=== PATIENT | male | born 1945 | race Caucasian/White ===

== ENCOUNTER 2018-09-25 19:13 | Day surgery (SDC) | payer OTHER ==
[2018-09-25] MEDS ORDERED: LIDOCAINE 2% VISCOUS 15 ML UDCUP PO ONE (19:44)
[2018-09-25] MEDS ORDERED: HYOSCYAMINE SULFATE 0.125 MG TAB PO ONE (19:44)
[2018-09-25] MEDS ORDERED: MAG HYDROX/AL HYDROX/SIMETH 30 ML UDCUP PO ONE (19:44)
--- NOTE | 2018-09-25 19:47 | EDPHY ---
H & P Stated Complaint: EATING DINNER, HICCUPS/INDIGESTION/BURNING, FORCED VOMIT, STILL BURNING Time Seen by Provider: 09/25/18 19:29 HPI/ROS: CHIEF COMPLAINT: Dyspepsia HISTORY OF PRESENT ILLNESS: The patient presents to the ED with severe dyspepsia that began after eating dinner. The patient reports that he is quite healthy. He exercises every day without any chest pain or shortness of breath. His symptoms began after having a primary rib dinner with baked potato. The patient denies any abdominal pain. The patient denies any fever, denies any productive cough. The patient reportedly regurgitated several times. Now he does complains of a burning esophageal pain. He reports he is able to swallow without discomfort currently REVIEW OF SYSTEMS: A comprehensive 10 point review of systems is otherwise negative aside from elements mentioned in the history of present illness. Source: Patient Exam Limitations: No limitations - Personal History Current Tetanus/Diphtheria Vaccine: Yes - Medical/Surgical History Hx Asthma: No Hx Chronic Respiratory Disease: No Hx Diabetes: No Hx Cardiac Disease: No Hx Renal Disease: No Hx Cirrhosis: No Hx Alcoholism: No Hx HIV/AIDS: No Hx Splenectomy or Spleen Trauma: No Other PMH: MENIERS, GERD, RIGHT HIP, LEFT KNEE, SPINAL TUMOR-BENIGN, - Social History Smoking Status: Former smoker - Physical Exam Exam: General Appearance: Alert, no distress Eyes: Pupils equal and round no pallor or injection ENT, Mouth: Mucous membranes moist Respiratory: There are no retractions, lungs are clear to auscultation Cardiovascular: Regular rate and rhythm Gastrointestinal: Abdomen is soft and nontender, no masses, bowel sounds normal Neurological: 5/5 strength all 4 extremities Skin: Warm and dry, no rashes Musculoskeletal: Neck is supple nontender Extremities: symmetrical, full range of motion Psychiatric: Patient is oriented X 3, there is no agitation Constitutional: Initial Vital Signs Temperature (C) 37.0 C 09/25/18 19:20 Heart Rate 68 09/25/18 19:20 Respiratory Rate 18 09/25/18 19:20 Blood Pressure 159/81 H 09/25/18 19:20 O2 Sat (%) 98 09/25/18 19:20 O2 Delivery Mode Room Air Allergies/Adverse Reactions: No Known Allergies Allergy (Unverified 09/25/18 19:19) Home Medications: Medication Instructions Recorded Lipitor 09/25/18 Triamterene 09/25/18 Medical Decision Making - Diagnostics EKG Interpretation: EKG: Complete interpretation has been separately recorded in the [employer] archive. Summary impression: Sinus rhythm, rate 67, no ischemic changes noted ED Course/Re-evaluation: The patient presents to the ED with complaints of severe dyspepsia the began after eating earlier today. The patient has no abdominal pain or tenderness. Initial EKG demonstrates no evidence of ischemia. The patient was given a GI cocktail. The patient drink this slowly with some improvement of his symptoms. The patient was given a p.o. Challenge also with carbonated soda and immediately developed recurrent regurgitation. Patient likely has an esophageal meat impaction. The patient received 1 mg of IV glucagon. Consultation was made with Gastroenterology at 8:20 p.m.. I spoke with Dr. Tate at 8:40 p.m. who is making arrangements for endoscopy. Differential Diagnosis: Differential diagnosis considered includes esophageal meat impaction, dyspepsia , gastroesophageal reflux disease, gastritis - Data Points Laboratory Results: Laboratory Results 09/25/18 19:40 09/25/18 19:40 09/25/18 09/25/18 19:40 19:40 WBC 6.85 10^3/uL 10^3/uL (3.80-9.50) RBC 5.13 10^6/uL 10^6/uL (4.40-6.38) Hgb 16.1 g/dL g/dL (13.7-17.5) Hct 46.4 % % (40.0-51.0) MCV 90.4 fL fL (81.5-99.8) MCH 31.4 pg pg (27.9-34.1) MCHC 34.7 g/dL g/dL (32.4-36.7) RDW 12.9 % % (11.5-15.2) Plt Count 234 10^3/uL 10^3/uL (150-400) MPV 9.0 fL fL (8.7-11.7) Neut % (Auto) 58.5 % % (39.3-74.2) Lymph % (Auto) 30.4 % % (15.0-45.0) [place] % (Auto) 8.3 % % (4.5-13.0) Eos % (Auto) 2.2 % % (0.6-7.6) Baso % (Auto) 0.6 % % (0.3-1.7) Nucleat RBC Rel Count 0.0 % % (0.0-0.2) Absolute Neuts (auto) 4.01 10^3/uL 10^3/uL (1.70-6.50) Absolute Lymphs (auto) 2.08 10^3/uL 10^3/uL (1.00-3.00) Absolute Monos (auto) 0.57 10^3/uL 10^3/uL (0.30-0.80) Absolute Eos (auto) 0.15 10^3/uL 10^3/uL (0.03-0.40) Absolute Basos (auto) 0.04 10^3/uL 10^3/uL (0.02-0.10) Absolute Nucleated RBC 0.00 10^3/uL 10^3/uL (0-0.01) Immature Gran % 0.0 % % (0.0-1.1) Immature Gran # 0.00 10^3/uL 10^3/uL (0.00-0.10) Sodium 138 mEq/L mEq/L (135-145) Potassium 4.0 mEq/L mEq/L (3.3-5.0) Chloride 108 mEq/L mEq/L (97-110) Carbon Dioxide 18 mEq/l L mEq/l (22-31) Anion Gap 12 mEq/L mEq/L (6-14) BUN 18 mg/dL mg/dL (7-23) Creatinine 0.7 mg/dL mg/dL (0.7-1.3) Estimated GFR > 60 Glucose 80 mg/dL mg/dL (70-100) Calcium 8.9 mg/dL mg/dL (8.5-10.4) Total Bilirubin 0.6 mg/dL mg/dL (0.1-1.4) Conjugated Bilirubin 0.3 mg/dL mg/dL (0.0-0.5) Unconjugated Bilirubin 0.3 mg/dL mg/dL (0.0-1.1) AST 35 IU/L IU/L (17-59) ALT 32 IU/L IU/L (21-72) Alkaline Phosphatase 55 IU/L IU/L (38-126) Total Protein 7.0 g/dL g/dL (6.3-8.2) Albumin 4.2 g/dL g/dL (3.5-5.0) Lipase 118 IU/L IU/L (23-300) Medications Given: Discontinued Medications Al Hydroxide/Mg Hydroxide (Maalox Susp) 30 ml PO ONCE ONE Stop: 09/25/18 19:45 Last Admin: 09/25/18 19:49 Dose: 30 ml Hyoscyamine Sulfate (Levsin, Hyomax-Sl) 0.25 mg PO ONCE ONE Stop: 09/25/18 19:45 Last Admin: 09/25/18 19:49 Dose: 0.25 mg Lidocaine (Lidocaine 2% Viscous) 15 ml PO ONCE ONE Stop: 09/25/18 19:45 Last Admin: 09/25/18 19:49 Dose: 15 ml Departure - Departure Disposition: To OP Cath/Surgery Clinical Impression: Esophageal foreign body Condition: Good Referrals: ANASTASIA MARC [Other] - As per Instructions
--- NOTE | 2018-09-25 19:50 | CPEKG ---
Test Reason : OPEN Blood Pressure : / mmHG Vent. Rate : 067 BPM Atrial Rate : 068 BPM P-R Int : 185 ms QRS Dur : 089 ms QT Int : 387 ms P-R-T Axes : 001 022 040 degrees QTc Int : 409 ms Sinus rhythm Confirmed by Bola Juarez ([id number]) on 09/25/2018 7:49:17 PM Referred By: Confirmed By:Bola Juarez
[2018-09-25 20:07] LABS: PLATELET COUNT 234 10^3/uL (150-400)
[2018-09-25] MEDS ORDERED: GLUCAGON HCL 1 MG VIAL IVP ONE (20:21)
[2018-09-25] MEDS ORDERED: PROPOFOL 200 MG/20 ML VIAL ONE (21:19)
[2018-09-25] MEDS ORDERED: fentaNYL 100 MCG/2 ML INJ ONE (21:19)
[2018-09-25] MEDS ORDERED: LIDOCAINE 2% 100 MG/5 ML SYR ONE (21:20)
[2018-09-25] MEDS ORDERED: ROCURONIUM 50 MG/5 ML VIAL ONE (21:20)
[2018-09-25] MEDS ORDERED: SUGAMMADEX SODIUM 200 MG/2 ML VIAL IVP ONE (21:20)
--- NOTE | 2018-09-25 21:41 | PDANEPAE ---
ANE History of Present Illness food impaction, here for EGD ANE Past Medical History - Pulmonary History Hx Oxygen in Use at Home: No - Endocrine History Hx Diabetes: No ANE Review of Systems Review of Systems: - Exercise capacity Exercise capacity: >=4 METS ANE Patient History - Allergies Allergies/Adverse Reactions: No Known Allergies Allergy (Unverified 09/25/18 19:19) - Home Medications Home Medications: Lipitor 09/25/18 [Last Taken Unknown] Triamterene 09/25/18 [Last Taken Unknown] - NPO status NPO Since - Liquids (Date): 09/25/18 NPO Since - Liquids (Time): 18:15 NPO Since - Solids (Date): 09/25/18 NPO Since - Solids (Time): 18:15 - Anes Hx Anes Hx: no prior problems - Smoking Hx Smoking Status: Former smoker - Alcohol Use Alcohol Use: Rarely - Family Anes Hx Family Anes Hx: none ANE Labs/Vital Signs - Labs Result Diagrams: 09/25/18 19:40 09/25/18 19:40 - Vital Signs Blood Pressure: 103/77 Heart Rate: 66 Respiratory Rate: 20 O2 Sat (%): 95 Height: 170.18 cm Weight: 71.214 kg ANE Physical Exam - Airway Neck exam: FROM Mallampati Score: Class 2 Mouth exam: normal dental/mouth exam - Pulmonary Pulmonary: no respiratory distress, clear to auscultation - Cardiovascular Cardiovascular: regular rate and rhythym, no murmur, rub, or gallop - ASA Status ASA Status: II ANE Anesthesia Plan Anesthesia Plan: general endotracheal anesthesia Urgent/Emergent Case: Jeannine dowling completed preop but documented later for safe timely pt care
--- NOTE | 2018-09-25 21:52 | GIREPORT ---
[facility] Surgical Services - Endoscopy Department Patient Name: Stephon Britton Procedure Date: 09/25/2018 9:24 PM Patient Type: Emergency Department Attending MD/ ER Physician: Maria T Tate MD Procedure: Upper GI endoscopy Indications: Dysphagia, Foreign body in the esophagus Providers: Maria T Tate MD Medicines: General Anesthesia Complications: No immediate complications. Description of Procedure: After obtaining informed consent, the endoscope was passed under direct vision. Throughout the procedure, the patient's blood pressure, pulse, and oxygen saturations were monitored continuously. The Endoscope was intro duced through the mouth, and advanced to the duodenal bulb. The upper GI endo scopy was accomplished without difficulty. The patient tolerated the procedur e well. Findings: Food was found in the lower third of the esophagus. Removal of food was accomplished. LA Grade C (one or more mucosal breaks continuous between tops of 2 or more mucosal folds, less than 75% circumference) esophagitis with no bleedin g was found in the lower third of the esophagus. Few cratered esophageal ulcers with no bleeding and no stigmata of rece nt bleeding were found in the lower third of the esophagus. The largest le jeny was 2 mm in largest dimension. Biopsies were taken with a cold forceps for histology. Estimated blood loss was minimal. Food (residue) was found in the stomach. The examined duodenum was normal. Estimated Blood Loss: Estimated blood loss was minimal. Post Op Diagnosis: - Food in the lower third of the esophagus. Removal was successful with insufflation food passed into stomach. - LA Grade C esophagitis. - Non-bleeding esophageal ulcers. Biopsied. Atypical for acute inflamma tion from food impaction consider viral. - Food (residue) in the stomach. - Normal examined duodenum. Recommendation: - Await pathology results. - Patient has a contact number available for emergencies. The signs and symptoms of potential delayed complications were discussed with the pat ient. Return to normal activities tomorrow. Written discharge instructions we re provided to the patient. - Clear liquid diet for 12 hours. Advance diet slowly. - Use Prilosec OTC 20 mg PO daily. - Use Mylanta PO as directed PRN. - Repeat upper endoscopy in 3 months to check healing. - Discharge patient to home. - Thank you for allowing me to participate in the care of your patient. Attending Participation: I personally performed the entire procedure. Maria T Tate MD Maria T Tate MD 09/25/2018 9:51:27 PM This report has been signed electronicallyMaria T Tate MD Number of Addenda: 0 Note Initiated On: 09/25/2018 9:24 PM [email or web address]
[2018-09-25] MEDS ORDERED: NALOXONE HCL 0.4 MG/ML INJ IVP PRN (21:57)
--- NOTE | 2018-09-25 21:59 | POSTANESTH ---
Post Anesthetic Evaluation Cardiovascular Status: Normal, Stable, Similar to Pre-Op Cond Respiratory Status: Normal, Stable, Similar to Pre-op Cond. Level of Consciousness/Mental Status: Can Participate in Eval, Alert and Oriented Pain Control: Adequate, Prn Tx Ordered Nausea/Vomiting Control: Adequate, Prn Tx Ordered Complications Possibly Related to Anesthesia: None Noted
[2018-09-25 22:51] VITALS: BP 119/74
--- NOTE | 2018-09-25 22:57 | GCON ---
DATE OF CONSULTATION: 09/25/2018 CHIEF COMPLAINT: Dysphagia. HISTORY OF PRESENT ILLNESS: Patient is a pleasant 73-year-old with remote history of heartburn who h ad an acute sensation of abdominal pain after eating prime rib this evening. He noted a feeling of b urning in his chest that resulted in hiccups and he was unable to swallow saliva. He presented to [facility] emergency room, he was given glucagon, initially felt better, but was still unable to swallow any l iquids. He states he has never had a history of foreign body obstruction. No history of dysphagia, although occasionally does get some GERD recently, but is not on any antacids. Still notes some burn ing discomfort substernally. ALLERGIES: No reported allergies. CURRENT MEDICATIONS: Triamterene, baby aspirin, and lisinopril. PAST MEDICAL HISTORY: Hypertension, Meniere's, left knee replacement, right hip replacement. SOCIAL HISTORY: He is a former smoker. FAMILY HISTORY: Negative for esophageal disease. REVIEW OF SYSTEMS: I performed a review of systems which is negative except for the pertinent positi ves or negatives as noted above in the HPI. PHYSICAL EXAMINATION: VITALS: He is afebrile. BP is 159/81, pulse is 50. GENERAL: He is alert an d oriented. He is able to swallow his own saliva. HEENT: Eyes, no scleral icterus. No oral lesion s. CARDIOVASCULAR: Regular rhythm. CHEST: Clear to auscultation. ABDOMEN: Positive bowel sounds. Soft, nontender. NEUROLOGICAL: Nonfocal. SKIN: No rashes. LABORATORY DATA: Hematocrit normal at 46 with normal white count. ASSESSMENT: Patient with acute onset of substernal burning pain with hiccups without clear sensation of foreign body. However, unable to swallow his own saliva. He did feel better after glucagon. Ho wever, he is still unable to swallow liquids, which leaves the concern for possible continued foreign body obstruction of the esophagus. Differential diagnosis will also include obstruction from inflam mation, stricture, or tumor. Would recommend upper endoscopy to assure no retained foreign body brandi gently tonight. PLAN: Upper endoscopy for evaluation and possible foreign body removal. Will do with anesthesia. /[id number]/MODL
== END 2018-09-25 23:03 | disposition home or self-care (01) ==
LOC: FSGY 21:35
PROVIDERS: ATTEND Internal Medicine Gastroenterology
PROC: 0DC38ZZ Extirpation of Matter from Lower Esophagus, Via Natural or Artificial Opening Endoscopic (ICD-10-PCS; principal; 2018-09-25 21:30)
DX: T18.128A Food in esophagus causing other injury, initial encounter (principal); K21.0 Gastro-esophageal reflux disease with esophagitis; R10.13 Epigastric pain; Z96.641 Presence of right artificial hip joint; Z96.652 Presence of left artificial knee joint
CPT/HCPCS: 96374; J1610; J2001; J2704; J3010